=== PATIENT | male | born 1980 ===

== ENCOUNTER 2019-04-20 12:45 | Emergency (ER) | payer SELFPAY ==
--- NOTE | 2019-04-20 12:56 | Emergency Department Report ---
Blank Doc - Documentation Documentation: 38-year-old male that presents with n/v abd pain, and blood in stools. Stated drinks a 6 pack of beer a day. This initial assessment/diagnostic orders/clinical plan/treatment(s) is/are subject to change based on patient's health status, clinical progression and re- assessment by fellow clinical providers in the ED. Further treatment and workup at subsequent clinical providers discretion. Patient/guardians urged not to elope from the ED as their condition may be serious if not clinically assessed and managed. Initial orders include: 1- Patient sent to MAIN for further evaluation and treatment 2- labs 3- UA
[2019-04-20 13:52] LABS: Bilirubin,Urine NEG (Negative); Blood,Urine NEG (Negative); Color,Urine Yellow (Yellow); Mucus,Urine FEW /HPF; Protein,Urine <15 mg/dL mg/dL (Negative); Urobilinogen,Urine < 2.0 mg/dL (<2.0); WBC,Urine < 1.0 /HPF (0.0-6.0)
[2019-04-20 14:35] LABS: Basophils # (Auto) 0.1 K/mm3 (0.0-0.1); Basophils % (Auto) 0.7 % (0.0-1.8); Eosinophils % (Auto) 0.5 % (0.0-4.3); Hematocrit 42.4 % (35.5-45.6); Hemoglobin 13.7 gm/dl (11.8-15.2); Lymphocytes # (Auto) 0.5 K/mm3 (1.2-5.4); Lymphocytes % (Auto) 5.6 % (13.4-35.0); Mean Corpuscular HGB Conc 32 % (32-34); Mean Corpuscular Volume 87 fl (84-94); Monocytes # (Auto) 0.5 K/mm3 (0.0-0.8); Monocytes % (Auto) 6.2 % (0.0-7.3); Platelet Count 310 K/mm3 (140-440); Red Blood Count 4.89 M/mm3 (3.65-5.03); Red Cell Distribution Width 15.3 % (13.2-15.2)
[2019-04-20 14:41] LABS: INR 1.05 (0.87-1.13)
[2019-04-20 14:42] LABS: Partial Thromboplastin Time 32.2 Sec. (24.2-36.6)
[2019-04-20 14:49] LABS: Alanine Aminotransferase 26 units/L (7-56); Albumin 4.2 g/dL (3.9-5); BUN/Creatinine Ratio 8; Blood Urea Nitrogen 6 mg/dL (9-20); Calcium 9.5 mg/dL (8.4-10.2); Hemolysis Index 6
--- NOTE | 2019-04-20 16:35 | Emergency Department Report ---
ED GI Bleed HPI - General Chief complaint: GI Bleed Stated complaint: VOMIT BLOOD/BUTTOCK PAIN Time Seen by Provider: 04/20/19 12:55 Source: patient Mode of arrival: Ambulatory Limitations: Language Barrier - History of Present Illness Initial comments: Patient is 38 years old male, nontoxic with no significant past medical history except for chronic alcohol abuse. Family stated that patient drink approximately 6 beers a day. Patient presented to the ER accompanied by his mother and his sister. Patient does not speak [place] translation is by his sister. Sr. stated that he has been having blood in the stool associated with swelling and burning sensation in his rectal area for the last 3 weeks. Patient stated that he had vomiting with bloody streak approximately 3 weeks ago. Patient denied any dizziness, weakness. No active hematemesis or melena or hematochezia. MD complaint: blood streaked emesis, blood on toilet paper -: week(s) (3) Radiation: none Quality: painless Context: alcohol abuse Associated Symptoms: denies other symptoms - Related Data Allergies Allergy/AdvReac Type Severity Reaction Status Date / Time No Known Allergies Allergy Unverified 04/20/19 12:50 ED Review of Systems ROS: Stated complaint: VOMIT BLOOD/BUTTOCK PAIN Other details as noted in HPI Comment: All other systems reviewed and negative Constitutional: denies: chills, fever Respiratory: denies: cough, shortness of breath, SOB with exertion, wheezing Cardiovascular: denies: chest pain Gastrointestinal: hematochezia. denies: abdominal pain, nausea, vomiting, diarrhea, constipation, hematemesis, melena Musculoskeletal: denies: back pain Neurological: denies: headache, weakness ED Past Medical Hx - Past Medical History Previous Medical History?: No - Surgical History Past Surgical History?: No - Social History Smoking Status: Never Smoker Substance Use Type: Alcohol ED Physical Exam - General Limitations: Language Barrier General appearance: alert, in no apparent distress - Head Head exam: Present: atraumatic, normocephalic, normal inspection - Eye Eye exam: Present: normal appearance - ENT ENT exam: Present: normal exam, normal orophraynx, mucous membranes moist - Neck Neck exam: Present: normal inspection, full ROM. Absent: tenderness, meningismus - Respiratory Respiratory exam: Present: normal lung sounds bilaterally - Cardiovascular Cardiovascular Exam: Present: regular rate, normal rhythm, normal heart sounds - GI/Abdominal GI/Abdominal exam: Present: soft, normal bowel sounds. Absent: distended, tenderness, guarding, rebound, rigid, organomegaly, mass, bruit, pulsatile mass, hernia - Rectal Rectal exam: Present: normal inspection, normal rectal tone, heme (+) stool, hemorrhoids. Absent: black stool, bloody stool, fecal impaction, mass, tenderness - Extremities Exam Extremities exam: Present: normal inspection, full ROM, normal capillary refill. Absent: tenderness, pedal edema, calf tenderness - Back Exam Back exam: Present: normal inspection, full ROM. Absent: CVA tenderness (R), CVA tenderness (L), muscle spasm, paraspinal tenderness, vertebral tenderness - Neurological Exam Neurological exam: Present: alert, oriented X3, CN II-XII intact - Skin Skin exam: Present: warm, intact, normal color ED Course Vital Signs 04/20/19 12:55 Temperature 97.7 F Pulse Rate 105 H Respiratory 20 Rate Blood Pressure 119/82 O2 Sat by Pulse 97 Oximetry ED Medical Decision Making - Lab Data Result diagrams: 04/20/19 14:10 04/20/19 14:10 - Medical Decision Making Patient is 38 years old male, nontoxic with no significant past medical history except for chronic alcohol abuse. Family stated that patient drink approximately 6 beers a day. Patient presented to the ER accompanied by his mother and his sister. Patient does not speak [place] translation is by his sister. Sr. stated that he has been having blood in the stool associated with swelling and burning sensation in his rectal area for the last 3 weeks. Patient stated that he had vomiting with bloody streak approximately 3 weeks ago. Patie nt denied any dizziness, weakness. No active hematemesis or melena or hematochezia. Patient labs reviewed with a hemoglobin of 13. Patient maintained stable with stable vital signs. Rectal exam showed hemorrhoids with no significant bleeding. Given patient's history of chronic alcohol abuse, patient strongly advised to follow-up with GI for possible endoscopy to rule out esophageal varices. I believe patient states vomiting is from dry heaving as he described his symptoms. Patient is medically stable for discharge. Patient and family advised to return to the ER if patient develops any new symptoms including excessive vomiting or diarrhea. Critical care attestation.: If time is entered above; I have spent that time in minutes in the direct care of this critically ill patient, excluding procedure time. ED Disposition Clinical Impression: GI bleed, Hemorrhoid Disposition: [id number] TO HOME OR SELFCARE Is pt being admited?: No Condition: Stable Instructions: Rectal Bleeding (ED), Hemorrhoids (ED) Referrals: [facility] [Provider Group] - 3-5 Days
[2019-04-20] MEDS ORDERED: KETOROLAC 60 MG/2 ML INJ ONE (17:37)
[2019-04-20] MEDS ORDERED: KETOROLAC 60 MG/2 ML INJ IM ONE (17:39)
[2019-04-20 19:38] VITALS: BP 122/86
== END 2019-04-20 18:00 | disposition home or self-care (01) ==
LOC: ED 12:45
DX: K92.2 Gastrointestinal hemorrhage, unspecified (principal); K64.9 Unspecified hemorrhoids
CPT/HCPCS: 36415; 80053; 81001; 85025; 85610; 85730; 96372; 99283; J1885